=== PATIENT | male | born 1955 | race Caucasian/White ===

== ENCOUNTER 2018-11-21 22:39 | Emergency (ER) ==
[2018-11-21 22:50] VITALS: BP 166/92; TEMP 97; BMI 14.9
[2018-11-21] MEDS ORDERED: LIDOCAINE HCL 1% SDV SUBCUT STA (22:55)
--- NOTE | 2018-11-21 23:30 | DI ---
EXAM: Left elbow three views HISTORY: Fall COMPARISON: None. FINDINGS: There is mild generalized osteopenia. There is no acute fracture or joint effusion.. Sof t tissue irregularity at the level of the olecranon compatible with laceration.. Hyperdense material is noted in relation to the laceration. IMPRESSION: Generalized osteopenia. No acute findings. Laceration with hyperdense material as described.
--- NOTE | 2018-11-21 23:52 | ED.PDOC ---
General ED Provider: Dr. KALE NOLASCO Chief Complaint: Laceration Stated Complaint: tripped falling on gravel with the left elbow. Had some bleeding with some pain Time Seen by Physician: 22:50 Mode of Arrival: Walk-In Information Source: Patient Primary Care Provider: EMANUEL MS Nursing and Triage Documentation Reviewed and Agree: Yes Does patient meet sepsis criteria?: No System Inflammatory Response Syndrome: Not Applicable Sepsis Protocol: For patient's 13 years and over: Temp is 96.8 and below OR 101 and greater Pulse >90 BPM Resp >20/minute Acutely Altered Mental Status Are patient's symptoms suggestive of a new infection, such as: -Pneumonia -Skin, Soft Tissue -Endocarditis -UTI -Bone, Joint Infection -Implantable Device -Acute Abdominal Infection -Wound Infection -Meningitis -Blood Stream Catheter Infection -Unknown Skin Complaint Exam - Lac/Torso/Upper Ext. Complaint/Exam Location of Injury: Left, Elbow Mechanism of Injury: Blunt trauma, FB potential Onset/Duration: one hour Symptoms Are: Still present Current Severity: Moderate Aggravating: Movement Alleviating: Compression Associated Signs and Symptoms: Denies: Fever, Chills, Erythema, Numbness, Tingling Related History: Denies: Anticoagulant use, Occupational injury Upper Extremity/Torso Picture: 1 - 5 x 1 x 0.5 cm laceration with debrie Differential Diagnoses: Foreign Body, Laceration Review of Systems - Review Of Systems Constitutional: Reports: No symptoms Eyes: Reports: No symptoms Ears, Nose, Mouth, Throat: Reports: No symptoms Respiratory: Reports: No symptoms Cardiac: Reports: No symptoms GI: Reports: No symptoms : Reports: No symptoms Musculoskeletal: Reports: Joint pain Skin: Reports: Bruising Neurological: Reports: No symptoms Endocrine: Reports: No symptoms Hematologic/Lymphatic: Reports: No symptoms All Other Systems: Reviewed and Negative Past Medical History - Past Medical History Previously Healthy: Yes Endocrine: Reports: None Cardiovascular: Reports: None Respiratory: Reports: COPD Hematological: Reports: Anemia Gastrointestinal: Reports: GERD Genitourinary: Reports: None Neuro/Psych: Reports: None Musculoskeletal: Reports: None Cancer: Reports: None - Surgical History General Surgical History: Reports: Tonsillectomy, Other (lobectomy ) - Family History Family History: Reports: None - Social History Smoking Status: Current every day smoker, Heavy tobacco smoker Hx Substance Use: No Alcohol Screening: Occasionally - Immunizations Tetanus Shot up to Date: Yes Physical Exam - Physical Exam Appearance: Ill-appearing, Well-nourished Pain Distress: Moderate Respiratory: Airway patent Musculoskeletal: Normal strength, ROM intact, No edema, No calf tenderness Skin: Warm, Dry Neurological: Alert, Oriented Psychiatric: Anxious Interpretation - Radiology Interpretation Radiology Interpretation By: ED Physician Radiology Results: Negative Procedures - Laceration/Wound Repair Left elbow Wound Description: Irregular Wound Length (cm): 5 Wound Width: 1 Wound Depth: 0.5 Wound Explored: Foreign body (gravel ) Wound Irrigated: Yes Wound Prep: Saline, Hibiclens Anesthesia: Lidocaine Wound Debrided: Moderate Undermining: Minimal Wound Margins: Flaps aligned Wound Repaired With: Sutures (4.0) Suture Size and Type: Prolene Number of Sutures: 11 (Running ) Layer Closure?: No Sterile Dressing Applied?: Yes Splint Applied?: No Sling Applied?: No Progress: Tolerated well had some bleeding after scabbing Critical Care Note - Critical Care Note Total Time (mins): 0 Course - Course Orders, Labs, Meds: Orders Category Date Time Status Wound care [ED WOUND CARE] .ONCE EMERGENCY 11/21/18 22:54 Active Lidocaine HCl/Pf [Lidocaine HCl 1% Sdv] MEDS 11/21/18 22:55 Discontinued 5 ml SUBCUT ONCE STA ELBOW, LEFT MIN 3 VIEWS Stat RADS 11/21/18 23:03 Completed Medications Discontinued Medications Generic Name Dose Route Start Last Admin Trade Name Shaheed PRN Reason Stop Dose Admin Lidocaine HCl 5 ml 11/21/18 22:55 11/21/18 23:03 Lidocaine Hcl 1% Sdv SUBCUT 11/21/18 22:56 5 ml ONCE STA Administration Vital Signs: Temp Pulse Resp BP Pulse Ox 11/21/18 22:40 97 F L 73 20 166/92 H 94 L Departure - Departure Time of Disposition: 23:54 Disposition: HOME SELF-CARE Discharge Problem: Laceration - injury Instructions: Laceration (ED) Condition: Stable Pt referred to PMD for follow-up: Yes IPMP verified?: No Additional Instructions: Have sutures removed in 7-10 days, Report any signs of infection Allergies/Adverse Reactions: Allergies No Known Allergies Allergy (Unverified 11/21/18 22:48) Home Medications: Ambulatory Orders 1 [Unobtainable] 11/21/18 Disposition Discussed With: Patient, Family
== END 2018-11-22 00:05 | disposition home or self-care (01) ==
LOC: ED 22:39
DX: S51.012A Laceration without foreign body of left elbow, initial encounter (principal); W01.0XXA Fall on same level from slipping, tripping and stumbling without subsequent striking against object, initial encounter; F17.210 Nicotine dependence, cigarettes, uncomplicated
CPT/HCPCS: 99282